=== PATIENT | female | born 1960 | race Caucasian/White ===

== ENCOUNTER 2016-09-21 05:07 | Emergency (ER) | payer BC, OTHER ==
[2016-09-21 05:13] VITALS: BP 137/79
--- NOTE | 2016-09-21 05:58 | ED ---
Leo Villa Janilya, scribed for Jonathan Rosales MD on 09/21/16 at 0554 . Upper Extremity Pain - HPI Summary HPI Summary: A 56 y/o female came [place] [facility] [place] w/ a sudden onset of constant left arm pain that started at around midnight of September 20, 2016. Pt works at [employer] [facility] [facility] [place] and she injured herself while here at work. 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 She reports that the pain travels from her shoulder down to elbow and through her fingertips. Tylenol and rest make the pain feel better. Lifting and certain movements make the pain worse. - History of Current Complaint Chief Complaint: EDExtremityUpper Stated Complaint: LEFT SHOULDER INJURY Time Seen by Provider: 09/21/16 05:30 Hx Obtained From: Patient Hx Last Menstrual Period: partial hysterectomy Onset/Duration: Started Days Ago, Still Present Timing: Constant, Lasting Hours Severity Initially: Moderate Severity Currently: Moderate Pain Location: Shoulder, Arm, Elbow, Forearm, Wrist, Hand, Finger Character: Sharp Aggravating Factor(s): Movement, Lifting Alleviating Factor(s): Rest, OTC Meds - Tylenol Associated Signs & Symptoms: Positive: Negative - Allergies/Home Medications Allergies/Adverse Reactions: Allergies Allergy/AdvReac Type Severity Reaction Status Date / Time Codeine Allergy Difficulty Verified 06/05/16 07:46 Swallowing Sulfa Drugs Allergy Difficulty Verified 06/05/16 07:46 Breathing/Wheezing Morphine AdvReac Severe N/V, "ROOM Verified 06/05/16 07:46 SPINNING" PMH/Surg Hx/FS Hx/Imm Hx Previously Healthy: Yes Endocrine/Hematology History: Denies: Hx Diabetes, Hx Thyroid Disease Cardiovascular History: Denies: Hx Hypertension, Hx Pacemaker/ICD Respiratory History: Reports: Hx Asthma Denies: Hx Chronic Obstructive Pulmonary Disease (COPD) GI History: Denies: Hx Ulcer Sensory History: Denies: Hx Hearing Aid Psychiatric History: Denies: Hx Panic Disorder - Surgical History Surgery Procedure, Year, and Place: PARTIAL HYSTERECTOMY - both ovaries remain Infectious Disease History: No Infectious Disease History: Denies: Hx Hepatitis, Hx Human Immunodeficiency Virus (HIV), History Other Infectious Disease, Traveled Outside the [place] in Last 30 Days - Family History Known Family History: Positive: Other - duodenal CA mother Negative: Hypertension, Diabetes - Social History Occupation: Employed Full-time - [employer] [facility] [place] Alcohol Use: Rare Substance Use Type: Reports: None Smoking Status (MU): Never Smoked Tobacco Review of Systems Negative: Fever Positive: Arthralgia - A shot of pain that goes through left shoulder, elbow, and fingertips, Myalgia - A shot of pain that goes through left shoulder, elbow , and fingertips All Other Systems Reviewed And Are Negative: Yes Physical Exam Triage Information Reviewed: Yes Vital Signs On Initial Exam: Initial Vitals Temp Pulse Resp BP Pulse Ox 98.3 F 87 16 137/79 97 09/21/16 05:08 09/21/16 05:08 09/21/16 05:08 09/21/16 05:08 09/21/16 05:08 Vital Signs Reviewed: Yes Appearance: Positive: Well-Appearing, Pain Distress - mild discomfort Skin: Positive: Warm ENT: Positive: Normal ENT inspection Respiratory/Lung Sounds: Positive: Breath Sounds Present Musculoskeletal: Positive: Other - lt shoulder painful to move in all directions , no deformity Neurological: Positive: NV Bundle Intact Distally Psychiatric: Positive: Normal Diagnostics - Vital Signs Vital Signs Temp Pulse Resp BP Pulse Ox 09/21/16 05:08 98.3 F 87 16 137/79 97 - Laboratory Lab Statement: Any lab studies that have been ordered have been reviewed, and results considered in the medical decision making process. - Radiology lt shoulder Xray Interpretation: No Acute Changes Radiology Interpretation Completed By: ED Physician Course/Dx - Diagnoses Provider Diagnoses: Shoulder sprain Discharge - Discharge Plan Condition: Stable Disposition: HOME Patient Education Materials: Shoulder Sprain (ED) Referrals: [facility] [place] [facility] REFERRAL [Outside] Additional Instructions: Follow up with your primary care provider tomorrow. The documentation as recorded by the Leo alex Janilya accurately reflects the service I personally performed and the decisions made by me, Jonathan Rosales MD.
--- NOTE | 2016-09-21 07:49 | RAD ---
HISTORY: Left shoulder pain, injury COMPARISONS: None VIEWS: 3, Frontal internal rotation, external rotation, and outlet views of the left shoulder FINDINGS: BONE DENSITY: Normal. BONES: There is no displaced fracture. JOINTS: There is no arthropathy. ALIGNMENT: There is no dislocation. SOFT TISSUES: Unremarkable. OTHER FINDINGS: None. IMPRESSION: NO ACUTE OSSEOUS INJURY. IF SYMPTOMS PERSIST, RECOMMEND REPEAT IMAGING.
== END 2016-09-21 06:30 | disposition home or self-care (01) ==
LOC: ED 05:07
DX: S43.402A Unspecified sprain of left shoulder joint, initial encounter (principal); X50.9XXA Other and unspecified overexertion or strenuous movements or postures, initial encounter; Y93.F2 Activity, caregiving, lifting; Y92.239 Unspecified place in hospital as the place of occurrence of the external cause; Z88.5 Allergy status to narcotic agent; Z88.2 Allergy status to sulfonamides
CPT/HCPCS: 99281

== ENCOUNTER 2017-05-04 18:50 | Emergency (ER) | payer BC ==
[2017-05-04 18:58] VITALS: BP 147/82
--- NOTE | 2017-05-04 19:57 | UC ---
Upper Extremity HPI - HPI Summary HPI Summary: 56 y/o female presents to the urgent care c/o LF elbow pain after a horse moved into her LF elbow and her pain was sharp. She is been treated by DR Hagen for possible LF rotator cuff tear. Pain is 7/10 w/ movement and 4/10 at rest, radiating for his forearm. Pt has taking Ibuprofen for her LF shoulder pain which has help for her LF elbow pain. Pt denies fever, numbness or tingling over the fingers, SOB, chest pain, abdominal pain, N/V/D - History of Current Complaint Chief Complaint: UCUpperExtremity Stated Complaint: ELBOW INJURY,WORK NOTE Time Seen by Provider: 05/04/17 19:56 Hx Obtained From: Patient Hx Last Menstrual Period: partial hysterectomy Onset/Duration: Sudden Onset, Lasting Hours - 4 hrs Severity Initially: Moderate Severity Currently: Moderate Pain Intensity: 7 - w/ movement Pain Scale Used: 0-10 Numeric Location Of Pain: Is Discrete @ - LF elbow Character: Sharp Aggravating Factor(s): Movement, Lifting, Flexion Alleviating Factor(s): OTC Meds Associated Signs And Symptoms: Positive: Swelling. Negative: Bruising, Fever, Weakness, Numbness/Tingling - Risk Factors Non-Orthopedic Risk Factor: Negative DVT Risk Factors: Negative Septic Arthritis Risk Factor: Negative - Allergies/Home Medications Allergies/Adverse Reactions: Allergies Allergy/AdvReac Type Severity Reaction Status Date / Time Codeine Allergy Difficulty Verified 05/04/17 18:58 Swallowing Sulfa Drugs Allergy Difficulty Verified 05/04/17 18:58 Breathing/Wheezing Morphine AdvReac Severe N/V, "ROOM Verified 05/04/17 18:58 SPINNING" Home Medications: Home Medications Metoprolol Tartrate TAB* [Lopressor TAB*] 25 mg PO DAILY 05/04/17 [History Confirmed 05/04/17] PMH/Surg Hx/FS Hx/Imm Hx Previously Healthy: Yes Respiratory History: Asthma - Surgical History Surgical History: Yes Surgery Procedure, Year, and Place: PARTIAL HYSTERECTOMY - both ovaries remain. APPENDIX CHILD - Family History Known Family History: Negative: Hypertension, Diabetes Family History: duodenal CA mother - Social History Occupation: Employed Full-time Lives: With Family Alcohol Use: Rare Substance Use Type: None Smoking Status (MU): Never Smoked Tobacco - Immunization History Most Recent Influenza Vaccination: 2014 Most Recent Tetanus Shot: unsure Review of Systems Constitutional: Negative Skin: Negative Eyes: Negative ENT: Negative Respiratory: Negative Cardiovascular: Negative Gastrointestinal: Negative Genitourinary: Negative Motor: Negative Neurovascular: Negative Musculoskeletal: Other: - LF elbow pain s/p injury Neurological: Negative Psychological: Negative Is Patient Immunocompromised?: No All Other Systems Reviewed And Are Negative: Yes Physical Exam Triage Information Reviewed: Yes Appearance: Well-Appearing, No Pain Distress, Well-Nourished, Obese Vital Signs: Initial Vital Signs Temp 97.8 F 05/04/17 18:53 Pulse 82 05/04/17 18:53 Resp 20 05/04/17 18:53 BP 147/82 05/04/17 18:53 Pulse Ox 98 05/04/17 18:53 Vital Signs Reviewed: Yes Eye Exam: Normal Eyes: Positive: Conjunctiva Clear - JACOBO, EOMI, ENT Exam: Normal ENT: Positive: Normal ENT inspection, Hearing grossly normal, Pharynx normal, TMs normal Neck exam: Normal Neck: Positive: Supple, Nontender, No Lymphadenopathy Respiratory Exam: Normal Respiratory: Positive: Chest non-tender, Lungs clear, Normal breath sounds Cardiovascular Exam: Normal Cardiovascular: Positive: RRR, No Murmur, Pulses Normal, Brisk Capillary Refill Abdominal Exam: Normal Abdomen Description: Positive: Nontender, No Organomegaly, Soft. Negative: CVA Tenderness (R), CVA Tenderness (L) Bowel Sounds: Positive: Present Musculoskeletal: Positive: Other: - LF elbow with mild swelling lateral side with pint tendernees at the same side, no bruisisng or wchymosis observed. Decrese ROM of LF elbow due to pain. Positive sensation, capillary refill intact , positive reflexes. Pulses WNL Neurological Exam: Normal Psychological Exam: Normal Skin Exam: Normal Upper Extremity Course/Dx - Course Course Of Treatment: 56 y/o female presents to the urgent care c/o LF elbow pain after a horse moved into her LF elbow and her pain was sharp. She is been treated by DR Hagen for possible LF rotator cuff tear. Pain is 7/10 w/ movement and 4/10 at rest, radiating for his forearm. Pt has taking Ibuprofen for her LF shoulder pain which has help for her LF elbow pain. Pt denies fever, numbness or tingling over the fingers, SOB, chest pain, abdominal pain, N/V/D. Hx obtained. LF elbow X-ray ordered:Negative, no abnormalities observed. Elbow inmmobilized with Moisés bandage. and Shoulder sling. Pt Rx ibuprofen PO. Advised RICE and avoid heavy lifting and keep arm immobilized. If symptoms do not improved to f/u wtih Dr Hagen for further evaluation and treatmetn. Pt given excused to for work. Patient understood and agreed. Left the clinic ambulating. - Differential Dx/Diagnosis Differential Diagnosis/HQI/PQRI: Arthritis, Bursitis, Contusion, Fracture ( Closed), Strain, Sprain Provider Diagnoses: 1-Left elbow pain Discharge - Discharge Plan Condition: Stable Disposition: HOME Prescriptions: Ibuprofen TAB* [Motrin TAB* 800 MG] 800 mg PO Q6H #30 tab Patient Education Materials: Tendinitis (ED), Low Sodium Diet (ED) Forms: *Work Release Referrals: [facility] [place] [facility] [Outside] - 1 Week Shamir Bejarano MD [Medical Doctor] - No Primary Care Phys,NOPCP [Primary Care Provider] - Additional Instructions: 1-Please take Ibuprofen PO q6-8hrs as directed to alleviate pain and swelling. 2-Please apply ice, keep your elbow immobilized. 3- Please f/u with your Orthopedic in 1 week is not improvement of symptoms for further evaluation and treatment. 4- Your BP today is elevated, please decrease salt in your diet, monitor your BP , if it continues to be elevated please f/y with your PCP for further management.
--- NOTE | 2017-05-04 20:37 | RAD ---
INDICATION: Left elbow pain. Injury COMPARISON: None TECHNIQUE: AP, lateral, and oblique views were obtained. FINDINGS: The bony structures, joint spaces, and soft tissues are normal for age. IMPRESSION: NEGATIVE EXAMINATION.
== END 2017-05-04 21:35 | disposition home or self-care (01) ==
LOC: UCEAST 18:50
DX: M25.522 Pain in left elbow (principal); W55.12XA Struck by horse, initial encounter; Y93.9 Activity, unspecified; Y92.9 Unspecified place or not applicable; Y99.9 Unspecified external cause status
CPT/HCPCS: 99212; G0463

== ENCOUNTER 2017-11-24 03:55 | Emergency (ER) | payer BC ==
[2017-11-24] MEDS ORDERED: Ketorolac INJ* 60 MG/2 ML VIAL IM ONE (04:23)
[2017-11-24] MEDS ORDERED: Cyclobenzaprine TAB* 10 MG PO ONE (04:23)
[2017-11-24 04:45] VITALS: BP 117/73
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
== END 2017-11-24 04:45 | disposition home or self-care (01) ==
LOC: ED 03:55
DX: M54.5 Low back pain (principal)
CPT/HCPCS: 96372; 99285; A9270-GY; J1885

== ENCOUNTER 2018-06-14 08:16 | Emergency (ER) | payer BC ==
[2018-06-14 08:27] VITALS: BP 142/89
--- NOTE | 2018-06-14 08:41 | UC ---
Abdominal Pain Female HPI - HPI Summary HPI Summary: WAS TRYING TO TAKE HER HORSE INTO THE BARN A FEW WEEKS AGO WHEN SHE TWISTED HER BODY AND THOUGHT SHE THREW HER BACK OUT. SINCE THEN SHE HAS HAD PERSISTENT LEFT -SIDED ABDOMINAL PAIN. SHE DENIES NAUSEA/VOMITING OR CHANGE IN BOWEL HABITS. NO BLOODY STOOL. NO FEVER. NO URINARY SYMPTOMS. IS CONCERNED BECAUSE THE PAIN IS NOT IMPROVING ALTHOUGH SHE REPORTS IT IS ALSO NOT WORSENING. FEELS WORSE WHEN SITTING FOR PROLONGED PERIOD OF TIME. - History of Current Complaint Chief Complaint: UCAbdominalPain Stated Complaint: LOWER L ABD PAIN Time Seen by Provider: 06/14/18 08:23 Hx Obtained From: Patient Hx Last Menstrual Period: partial hysterectomy Onset/Duration: Sudden Onset, Lasting Weeks, Still Present Timing: Constant Severity Initially: Moderate Severity Currently: Moderate Pain Intensity: 2 Pain Scale Used: 0-10 Numeric Location: Other - LEFT SIDED Radiates: No Character: Sharp Aggravating Factor(s): Other: - SITTING Alleviating Factor(s): Nothing Associated Signs and Symptoms: Negative: Diaphoresis, Fever, Back Pain, Constipation, Blood in Stool, Urinary Symptoms, Decreased Appetite, Vaginal Bleeding, Vaginal Discharge, Nausea, Vomiting, Diarrhea Allergies/Adverse Reactions: Allergies Allergy/AdvReac Type Severity Reaction Status Date / Time codeine Allergy Difficulty Verified 06/14/18 08:27 Swallowing morphine Allergy Nausea And Verified 06/14/18 08:27 Vomiting Sulfa (Sulfonamide Allergy Shortness Verified 06/14/18 08:27 Antibiotics) of Breath PMH/Surg Hx/FS Hx/Imm Hx - Additional Past Medical History Additional PMH: BRAIN TUMOR Respiratory History: Asthma - Surgical History Surgical History: Yes Surgery Procedure, Year, and Place: PARTIAL HYSTERECTOMY - both ovaries remain. APPENDIX CHILD - Family History Known Family History: Positive: Other - duodenal CA mother Negative: Hypertension, Diabetes Family History: duodenal CA mother - Social History Alcohol Use: Rare Substance Use Type: None Smoking Status (MU): Never Smoked Tobacco - Immunization History Most Recent Influenza Vaccination: 2014 Most Recent Tetanus Shot: unsure Review of Systems Constitutional: Negative Respiratory: Negative Cardiovascular: Negative Gastrointestinal: Abdominal Pain Genitourinary: Negative All Other Systems Reviewed And Are Negative: Yes Physical Exam Triage Information Reviewed: Yes Appearance: Well-Appearing, No Pain Distress, Well-Nourished Vital Signs: Initial Vital Signs Temp 97.9 F 06/14/18 08:20 Pulse 81 06/14/18 08:20 Resp 16 06/14/18 08:20 BP 142/89 06/14/18 08:20 Pulse Ox 97 06/14/18 08:20 Vital Signs Reviewed: Yes Eyes: Positive: Conjunctiva Clear ENT: Positive: Hearing grossly normal Neck: Positive: Supple Respiratory Exam: Normal Cardiovascular Exam: Normal Abdomen Description: Positive: Soft, Other: - TTP LEFT SIDED ABDOMEN. NO REBOUND OR RIGIDITY. Negative: CVA Tenderness (R), CVA Tenderness (L), Distended, Guarding Bowel Sounds: Positive: Present Musculoskeletal: Positive: No Edema Neurological: Positive: Alert Psychological: Positive: Age Appropriate Behavior Skin: Negative: rashes Abd Pain Female Course/Dx - Course Course Of Treatment: DISCUSSED TRANSFER TO ED FOR FURTHER W/U BUT PT STATES SHE WOULD RATHER GO HOME WITH CAREFUL OBSERVATION AND CLOSE F/U. RECOMMENDED A URINE DIP BUT SHE DOES NOT THINK SHE CAN PROVIDE A URINE SAMPLE. STATES SHE WILL TRY TO SEE HER PCP BUT WILL GO TO ED IF SX WORSEN OR UNABLE TO SEE PCP IN TIMELY MANNER. - Differential Dx/Diagnosis Provider Diagnoses: LEFT SIDED ABDOMINAL PAIN Discharge - Sign-Out/Discharge Documenting (check all that apply): Patient Departure All imaging exams completed and their final reports reviewed: No Studies - Discharge Plan Condition: Stable Disposition: HOME Patient Education Materials: Abdominal Pain (ED) Referrals: [facility] [Provider Group] - 2 Days Additional Instructions: UNCLEAR ETIOLOGY OF YOUR ABDOMINAL PAIN TODAY. GIVEN THE PERSISTENT NATURE OF YOUR DISCOMFORT YOU WOULD BENEFIT FROM A MORE EXTENSIVE WORK-UP THAN WHAT WE CAN PROVIDE HERE. CALL YOUR PCP FOR EVAL IN THE NEXT 1-2 DAYS OR IF YOU CAN NOT SECURE AN APPT IN A TIMELY MANNER GO TO THE ED FOR POSSIBLE LAB WORK AND/OR IMAGING. - Billing Disposition and Condition Condition: STABLE Disposition: Home
== END 2018-06-14 08:45 | disposition home or self-care (01) ==
LOC: UCEAST 08:16
DX: R10.30 Lower abdominal pain, unspecified (principal); J45.909 Unspecified asthma, uncomplicated; Z88.5 Allergy status to narcotic agent; Z88.2 Allergy status to sulfonamides
CPT/HCPCS: 99211; G0463

== ENCOUNTER 2018-06-14 10:24 | Emergency (ER) | payer BC ==
--- NOTE | 2018-06-14 10:50 | ED ---
Abdominal Pain/Female - HPI Summary HPI Summary: Patient is a 58 y/o F w/ c/o LLQ abdominal pain onsetting three weeks ago. She reports that she was torqued by a horse (horse went one way, she went the other and fell off the horse) and has been experiencing LLQ pain since. Patient reports that pain is aggravated by sitting and movement. She also reports some lower back pain. She denies fever, sweats, chills, dysuria, hematuria, N/V/D, numbness, tingling. Patient was seen at [facility] and sent to ED for CT. PSHx of partial hysterectomy, appendectomy, tubal ligation. PMHx of ovarian cysts, no PMHx of diverticulitis. On triage, pain is rated 2/10, nothing is reported to alleviate Sx. Home medications and allergies are reviewed. - History of Current Complaint Chief Complaint: EDAbdPain Stated Complaint: ABD PAIN Time Seen by Provider: 06/14/18 10:34 Hx Obtained From: Patient Hx Last Menstrual Period: partial hysterectomy Onset/Duration: Lasting Weeks - onset three weeks ago, Still Present Timing: Weeks - three weeks Severity Currently: Mild - 2/10 Pain Intensity: 2 Pain Scale Used: 0-10 Numeric - 2/10 Location: Discrete At: LLQ Aggravating Factor(s): Movement, Other: - sitting for extended periods Alleviating Factor(s): Nothing Associated Signs and Symptoms: Positive: Back Pain - lower. Negative: Fever, Urinary Symptoms, Nausea, Vomiting, Diarrhea Allergies/Adverse Reactions: Allergies Allergy/AdvReac Type Severity Reaction Status Date / Time codeine Allergy Difficulty Verified 06/14/18 10:29 Swallowing morphine Allergy Nausea And Verified 06/14/18 10:29 Vomiting Sulfa (Sulfonamide Allergy Shortness Verified 06/14/18 10:29 Antibiotics) of Breath Home Medications: Home Medications Albuterol inh POWDER (NF) [Proair Respiclick] 1 puff INH Q6HR PRN 06/14/18 [ History Confirmed 06/14/18] Budesonide/Formote 160/4.5(NF) [Symbicort 160/4.5 (NF)] 1 puff INH BID PRN 06/14 [History Confirmed 06/14/18] Metoprolol Succinate XL TAB* [Toprol XL TAB*] 25 mg PO DAILY 06/14/18 [History Confirmed 06/14/18] PMH/Surg Hx/FS Hx/Imm Hx Endocrine/Hematology History: Denies: Hx Diabetes, Hx Thyroid Disease Cardiovascular History: Denies: Hx Hypertension, Hx Pacemaker/ICD Respiratory History: Reports: Hx Asthma Denies: Hx Chronic Obstructive Pulmonary Disease (COPD) GI History: Denies: Hx Ulcer History: Reports: Other Problems/Disorders - ovarian cysts Denies: Hx Renal Disease Sensory History: Denies: Hx Hearing Aid Psychiatric History: Denies: Hx Panic Disorder - Surgical History Surgery Procedure, Year, and Place: PARTIAL HYSTERECTOMY - both ovaries remain. APPENDIX CHILD. TUBAL LIGATION - Immunization History Immunizations Up to Date: Yes Infectious Disease History: No Infectious Disease History: Denies: Hx Hepatitis, Hx Human Immunodeficiency Virus (HIV), History Other Infectious Disease, Traveled Outside the [place] in Last 30 Days - Family History Known Family History: Positive: Other - duodenal CA mother Negative: Hypertension, Diabetes Family History: duodenal CA mother - Social History Alcohol Use: Rare Alcohol Amount: 1-2 x per month Substance Use Type: Reports: None Smoking Status (MU): Never Smoked Tobacco Review of Systems Negative: Fever, Chills Negative: Erythema Negative: Sore Throat Negative: Chest Pain Negative: Shortness Of Breath, Cough Positive: Abdominal Pain. Negative: Vomiting, Diarrhea, Nausea Negative: dysuria, hematuria Positive: Other - POSITIVE: lower back pain . Negative: Myalgia, Edema Negative: Rash Neurological: Other - NEGATIVE: dizziness All Other Systems Reviewed And Are Negative: Yes Physical Exam - Summary Physical Exam Summary: Constitutional: Well-developed, Well-nourished, Alert. (-) Distressed Skin: Warm, Dry HENT: Normocephalic; Atraumatic Eyes: Conjunctiva normal Neck: Musculoskeletal ROM normal neck. (-) JVD, (-) Stridor, (-) Tracheal deviation Cardio: Rhythm regular, rate normal, Heart sounds normal; Intact distal pulses; The pedal pulses are 2+ and symmetric. Radial pulses are 2+ and symmetric. (-) Murmur Pulmonary/Chest wall: Effort normal. (-) Respiratory distress, (-) Wheezes, (-) Rales Abd: Soft, (-) epigastric tenderness, (+) LLQ tenderness (-) Distension, (-) Guarding, (-) Rebound Musculoskeletal: (-) Edema (+) L4 tenderness Lymph: (-) Cervical adenopathy Neuro: Alert, Oriented x3 Psych: Mood and affect Normal Triage Information Reviewed: Yes Vital Signs On Initial Exam: Initial Vitals Temp Pulse Resp BP Pulse Ox 97.1 F 80 18 149/97 98 06/14/18 10:25 06/14/18 10:25 06/14/18 10:25 06/14/18 10:25 06/14/18 10:25 Vital Signs Reviewed: Yes Diagnostics - Vital Signs Vital Signs Temp Pulse Resp BP Pulse Ox 06/14/18 10:25 97.1 F 80 18 149/97 98 - Laboratory Result Diagrams: 06/14/18 10:53 06/14/18 10:53 Lab Statement: Any lab studies that have been ordered have been reviewed, and results considered in the medical decision making process. Re-Evaluation - Re-Evaluation First Eval Re-Evaluation Time: 14:40 Comment: Results of labs and tests were discussed with patient. Patient will be discharged to home. Patient is agreeable with this plan Abdominal Pain Fem Course/Dx - Course Course Of Treatment: Patient is a 58 y/o F w/ c/o LLQ abdominal pain onsetting three weeks ago. She reports that she was torqued by a horse (horse went one way , she went the other and fell off the horse) and has been experiencing LLQ pain since. Patient reports that pain is aggravated by sitting and movement. She also reports some lower back pain. She denies fever, sweats, chills, dysuria, hematuria, N/V/D, numbness, tingling. [facility] and [facility] to ED for CT. PSHx of partial hysterectomy, appendectomy, tubal ligation. PMHx of ovarian cysts, no PMHx of diverticulitis. On triage, pain is rated 2/10 , nothing is reported to alleviate Sx. Home medications and allergies are reviewed. On physical exam, patient is noted to have L4 and LLQ tenderness. During ED course, patient received fluids. CT abd/pel showed acute appendagitis epiploica at the descending colon. Pelvic US showed patient status post hysterectomy. No adnexal masses are noted. CT lumbar spine showed degenerative disc disease and osteoarthritis. There is moderate narrowing of the central canal at L4-L5. There is multilevel neuroforaminal narrowing as described above. No acute osseous injury to the lumbar spine. Labs showed WBC 10.4, glucose 105, lactic acid 0.7, CRP 31.18, lipase 11. UA showed trace leukocyte esterase and the presence of squamous epith cells. Results of labs and tests were discussed with patient. Patient will be discharged to home. Patient is agreeable with this plan. Dx of epiploic appendagitis. - Diagnoses Provider Diagnoses: Epiploic appendagitis Discharge - Sign-Out/Discharge Documenting (check all that apply): Patient Departure - discharge - Discharge Plan Condition: Stable Disposition: HOME Prescriptions: Naproxen TAB* [Naprosyn 250 mg TAB*] 500 mg PO Q8H PRN #30 tab PRN Reason: Pain - Moderate To Severe traMADol TAB* [Ultram*] 50 mg PO Q6HR PRN #15 tab MDD 4 PRN Reason: Pain Scale 6-10 Patient Education Materials: Abdominal Pain (ED) Referrals: [facility] [Outside] - 2 Days Additional Instructions: FOLLOW UP WITH PRIMARY CARE PHYSICIAN IN 1-2 DAYS. RETURN TO THE EMERGENCY DEPARTMENT FOR CHANGING OR WORSENING SYMPTOMS - Attestation Statements Document Initiated by Scribe: Yes Documenting Scribe: Rylan Ho Provider For Whom Scribe is Documenting (Include Credential): Carter Desai MD Scribe Attestation: Rylan Villa , scribed for Carter Desai MD on 06/14/18 at 1923.
[2018-06-14 10:59] LABS: ABS Basophils 0 10^3/ul (0-0.2); ABS Eosinophils 0.3 10^3/ul (0-0.6); ABS Lymphocytes 1.7 10^3/ul (1.0-4.8); ABS Monocytes 0.7 10^3/ul (0-0.8); ABS Neutrophils 7.7 10^3/ul (1.5-7.7); ABS Nucleated RBC 0 10^3/ul; Eosinophil % 2.6 % (0-6); Hematocrit 42 % (35-47); Hemoglobin 14.1 g/dl (12.0-16.0); Mean Corpuscular HGB Conc 34 g/dl (31-36); Mean Corpuscular Hemoglobin 29 pg (27-31); Mean Corpuscular Volume 86 fL (80-97); Mean Platelet Volume 7.3 um3 (7.4-10.4); Nucleated Red Blood Cells % 0.1; Platelet Count 264 10^3/ul (150-450); Red Blood Count 4.82 10^6/ul (4.00-5.40); Red Cell Distribution Width 14 % (10.5-15); White Blood Count 10.4 10^3/ul (3.5-10.8)
[2018-06-14 11:17] LABS: EGFR Non-African American 72.9 (>60)
[2018-06-14] MEDS ORDERED: NS 0.9% 1000 ML* 1,000 ML IV ONE (11:18)
[2018-06-14 12:14] LABS: Urine Appearance Clear; Urine Blood Negative (Negative); Urine Color Straw; Urine Ketones Negative (Negative); Urine Protein Negative (Negative); Urine Red Blood Cell Absent (Absent); Urine Specific Gravity 1.005 (1.010-1.030); Urine Urobilinogen Negative (Negative); Urine White Blood Cell Trace(0-5/hpf) (Absent)
[2018-06-14] MEDS ORDERED: Iohexol 300* (CONTRAST) 10 ML SDV IV ONE (12:40)
--- NOTE | 2018-06-14 13:24 | RAD ---
Indication: Lower abdominal pain. Left lower quadrant pain. Real-time sonography of the pelvis was performed. The patient is status post hysterectomy. The right ovary measures 2.1 x 2.0 x 1.7 cm. Left ovary measures 2.3 x 2.1 x 1.4 cm. Doppler interrogation demonstrates flow in both ovaries. IMPRESSION: Patient status post hysterectomy. No adnexal masses are noted.
--- NOTE | 2018-06-14 13:53 | RAD ---
HISTORY: TWISTED BY HORSE, PERSISTENT LOWER BACK PAIN COMPARISONS: None TECHNIQUE: Multiple contiguous axial CT scans were obtained of the lumbar spine without intravenous contrast, with coronal and sagittal multiplanar reformations. FINDINGS: SPINAL CANAL: Evaluation of the central canal is limited on CT technique; however, there is no obvious canalicular mass or epidural hemorrhage. ALIGNMENT: The alignment is normal. VERTEBRAL BODIES: There is anterolateral marginal osteophyte formation most pronounced at L4-L5. The vertebral bodies preserved in height. There is no displaced fracture. JOINTS: There is facet osteoarthritis most pronounced at L4-L5 and L5-S1. MUSCULATURE: Unremarkable INTERVERTEBRAL DISCS: There is diffuse loss of intervertebral disc height throughout the spine. AXIAL IMAGES: T11-T12: There is no osseous neural foraminal narrowing or central canal stenosis. T12-L1: There is no osseous neural foraminal narrowing or central canal stenosis. L1-L2: There is no osseous neural foraminal narrowing or central canal stenosis. L2-L3: There is marginal osteophyte formation at the neural foramina bilaterally of mild bilateral neuroforaminal narrowing. There is no osseous central canal stenosis. L3-L4: There is broad based disc bulge. There is marginal osteophyte formation at the neural foramina bilaterally. There is mild bilateral neuroforaminal narrowing. There is no osseous central canal stenosis. L4-L5: There is posterior osteophytic ridging with bilateral uncovertebral facet hypertrophy. There is moderate bilateral neuroforaminal narrowing. There is moderate narrowing of the central canal. L5-S1: There is marginal osteophyte formation at the neural foramina bilaterally. There is mild bilateral neuroforaminal narrowing. There is no osseous central canal stenosis. SOFT TISSUES: The visualized soft tissues of the abdomen are unremarkable. OTHER: None IMPRESSION: 1. DEGENERATIVE DISC DISEASE AND OSTEOARTHRITIS. 2. THERE IS MODERATE NARROWING OF THE CENTRAL CANAL AT L4-L5. 3. THERE IS MULTILEVEL NEUROFORAMINAL NARROWING DESCRIBED ABOVE. 4. NO ACUTE OSSEOUS INJURY TO THE LUMBAR SPINE
--- NOTE | 2018-06-14 14:04 | RAD ---
INDICATION: LEFT side abdominal pain. History of ovarian cysts. Post appendectomy and tubal ligation. COMPARISON: October 19, 2004 CT. TECHNIQUE: Multidetector CT images were obtained from the lung bases to the ischial tuberosities with 150 mL Omnipaque 300 IV oral contrast administered.. Multiplanar reformation. REPORT: VISUALIZED INFERIOR THORAX: Few tiny basilar pulmonary nodules are unchanged compared with the 2005 exam without concern. LIVER / GALLBLADDER / PANCREAS / SPLEEN: 23.5 cm cephalocaudal liver is decreased in density consistent with hepatosteatosis. Negative for focal liver lesions or biliary dilatation. No CT abnormality of the gallbladder. Unremarkable pancreas and spleen. ALIMENTARY TRACT: Negative for CT abnormality of the upper GI or small bowel. There is inflammation of epiploic fat at the anterior margin of the descending colon consistent with appendagitis epiploica. Negative for associated free fluid, free air, or bowel obstruction. MESENTERIC: Unremarkable. ADRENAL / GENITOURINARY: Normal adrenal glands. Unremarkable kidneys with symmetric nephrograms and pyelograms. Few small parapelvic cysts noted at the LEFT kidney without concern. Unremarkable nondilated ureters and partially distended urinary bladder. Unremarkable uterus and adnexal regions. RETROPERITONEAL: Negative for lymphadenopathy. VASCULAR: Normal diameter abdominal aorta and iliac arteries. Physiologic distention of the IVC. BONES: Degenerative spondylosis with advanced disc space narrowing at L4-L5 without significant change. Chronic subchondral sclerosis at the LEFT greater than RIGHT sacroiliac joints. Negative for suspicious focal osseous lesions. SOFT TISSUE: Unremarkable. IMPRESSION: #. Acute appendagitis epiploica at the descending colon.
[2018-06-14 14:58] VITALS: BP 169/104
== END 2018-06-14 14:57 | disposition home or self-care (01) ==
LOC: ED 10:24
DX: K63.89 Other specified diseases of intestine (principal); M54.5 Low back pain; M51.36 Other intervertebral disc degeneration, lumbar region; M47.816 Spondylosis without myelopathy or radiculopathy, lumbar region; Z90.711 Acquired absence of uterus with remaining cervical stump; Z90.89 Acquired absence of other organs; Z80.0 Family history of malignant neoplasm of digestive organs; Z88.5 Allergy status to narcotic agent; Z88.2 Allergy status to sulfonamides
CPT/HCPCS: 36415; 72131; 74177; 76856; 80053; 81003; 81015; 83605; 83690; 85025; 86140; 87086; 99283; Q9967

== ENCOUNTER 2019-02-06 07:53 | Emergency (ER) | payer BC ==
--- NOTE | 2019-02-06 08:08 | UC ---
General HPI - HPI Summary HPI Summary: 58 yo lady c/o episode sob / wheezing since early this morning. No fever / chills. No URI, h/a, vis / aud issues. No GI issues. No rash. Hx rad. Has albuterol and symbicort inhalers, but symbicort ran out and no longer has albuterol. Leaving to go out of town for several days, requests refills of each. - History of Current Complaint Stated Complaint: SHORTNESS OF BREATH Time Seen by Provider: 02/06/19 08:07 Hx Obtained From: Patient Hx Last Menstrual Period: partial hysterectomy - Allergy/Home Medications Allergies/Adverse Reactions: Allergies Allergy/AdvReac Type Severity Reaction Status Date / Time codeine Allergy Difficulty Verified 02/06/19 08:05 Swallowing morphine Allergy Nausea And Verified 02/06/19 08:05 Vomiting Sulfa (Sulfonamide Allergy Shortness Verified 02/06/19 08:05 Antibiotics) of Breath Home Medications: Home Medications Albuterol HFA INHALER* [Ventolin HFA Inhaler*] 2 puff INH Q4H PRN 02/06/19 [ History Confirmed 02/06/19] PMH/Surg Hx/FS Hx/Imm Hx Previously Healthy: Yes - see hpi - Surgical History Surgical History: Yes Surgery Procedure, Year, and Place: PARTIAL HYSTERECTOMY - both ovaries remain. APPENDIX CHILD. TUBAL LIGATION - Family History Known Family History: Positive: Other - duodenal CA mother Negative: Hypertension, Diabetes Family History: duodenal CA mother - Social History Alcohol Use: Rare Alcohol Amount: 1-2 x per month Substance Use Type: None Smoking Status (MU): Never Smoked Tobacco - Immunization History Most Recent Influenza Vaccination: 2014 Most Recent Tetanus Shot: unsure Review of Systems All Other Systems Reviewed And Are Negative: Yes Constitutional: Positive: Negative Skin: Positive: Negative Eyes: Positive: Negative ENT: Positive: Negative Respiratory: Positive: Other - see hpi Cardiovascular: Positive: Other - see hpi Gastrointestinal: Positive: Negative - see hpi Genitourinary: Positive: Negative Motor: Positive: Negative Neurovascular: Positive: Negative Musculoskeletal: Positive: Negative Neurological: Positive: Negative Psychological: Positive: Negative Is Patient Immunocompromised?: No Physical Exam Triage Information Reviewed: Yes Appearance: Well-Appearing, Well-Nourished Vital Signs Reviewed: Yes Eye Exam: Normal ENT Exam: Other - L cerumen impaction ENT: Positive: Pharynx normal Neck exam: Normal Respiratory Exam: Other - occas exp wheeze, no rtx. no rhonchi. Respiratory: Positive: No respiratory distress, No accessory muscle use Cardiovascular Exam: Normal Cardiovascular: Positive: RRR, No Murmur, Pulses Normal, Brisk Capillary Refill Abdominal Exam: Normal Abdomen Description: Positive: Nontender Musculoskeletal Exam: Normal Neurological Exam: Normal - grossly nonfocal Psychological Exam: Normal - conversing easily and appropriately Skin Exam: Normal - no visible or reported rash, nondiaphoretic Course/Dx - Course Course Of Treatment: Reviewed coa / tx plan. Questions as posed answered to the best of my ability. Re cerumen impaction - d/w pt, she will irrigate at home on her own. Seek medical attention for worse or new problems. - Diagnoses Provider Diagnosis: Reactive airway disease, Cerumen impaction Discharge - Sign-Out/Discharge Documenting (check all that apply): Patient Departure All imaging exams completed and their final reports reviewed: No Studies - Discharge Plan Condition: Stable Disposition: HOME Prescriptions: Albuterol HFA INHALER* [Ventolin HFA Inhaler*] 1 - 2 puff INH Q4H PRN #1 mdi PRN Reason: Wheezing Budesonide/Formote 160/4.5(NF) [Symbicort 160/4.5 (NF)] 1 puff INH BID #1 mdi Patient Education Materials: Reactive Airways Disease (ED), Wheezing (ED) Referrals: No Primary Care Phys,NOPCP [Primary Care Provider] - Servando Garcia [employer] [Nurse Practitioner] - Additional Instructions: Follow up with your primary care provider, per routine. Call to schedule appointment in the next couple months if possible. Hydrate. Seek medical attention for worse or new problems. - Billing Disposition and Condition Condition: STABLE Disposition: Home
[2019-02-06 08:11] VITALS: BP 124/80
== END 2019-02-06 08:27 | disposition home or self-care (01) ==
LOC: UCEAST 07:53
DX: J45.909 Unspecified asthma, uncomplicated (principal); H61.23 Impacted cerumen, bilateral; Z88.5 Allergy status to narcotic agent; Z88.2 Allergy status to sulfonamides
CPT/HCPCS: 99212; G0463

== ENCOUNTER 2019-05-17 07:56 | Emergency (ER) | payer BC, OTHER ==
[2019-05-17 08:11] VITALS: BP 131/79
--- NOTE | 2019-05-17 09:05 | UC ---
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 LAST NIGHT A PATIENT LAUNCHED HIMSELF OUT OF HIS BED AND SHE TRIED TO CATCH HIM TO PREVENT HIM FROM COLLIDING WITH A WALL. IN THE PROCESS SHE WRENCHED HER RIGHT SHOULDER AND UPPER ARM. - History of Current Complaint Chief Complaint: UCUpperExtremity Stated Complaint: R SHOULDER INJURY Time Seen by Provider: 05/17/19 08:22 Hx Obtained From: Patient Hx Last Menstrual Period: partial hysterectomy Onset/Duration: Sudden Onset, Lasting Hours, Still Present Timing: Constant Severity Initially: Moderate Severity Currently: Moderate Pain Intensity: 4 Pain Scale Used: 0-10 Numeric Character: Sharp Aggravating Factor(s): Movement Alleviating Factor(s): Rest Associated Signs And Symptoms: Positive: Negative Related History: Dominant Hand Right - Allergies/Home Medications Allergies/Adverse Reactions: Allergies Allergy/AdvReac Type Severity Reaction Status Date / Time codeine Allergy Difficulty Verified 05/17/19 08:00 Swallowing morphine Allergy Nausea And Verified 05/17/19 08:00 Vomiting Sulfa (Sulfonamide Allergy Shortness Verified 05/17/19 08:00 Antibiotics) of Breath PMH/Surg Hx/FS Hx/Imm Hx Respiratory History: Asthma - Surgical History Surgical History: Yes Surgery Procedure, Year, and Place: PARTIAL HYSTERECTOMY - both ovaries remain. APPENDIX CHILD. TUBAL LIGATION - Family History Known Family History: Positive: Other - duodenal CA mother Negative: Hypertension, Diabetes Family History: duodenal CA mother - Social History Alcohol Use: None Alcohol Amount: 1-2 x per month Substance Use Type: None Smoking Status (MU): Never Smoked Tobacco - Immunization History Most Recent Influenza Vaccination: 2014 Most Recent Tetanus Shot: unsure Review of Systems All Other Systems Reviewed And Are Negative: Yes Constitutional: Positive: Negative Skin: Positive: Negative Respiratory: Positive: Negative Cardiovascular: Positive: Negative Gastrointestinal: Positive: Negative Musculoskeletal: Positive: Decreased ROM, Myalgia Physical Exam Triage Information Reviewed: Yes Appearance: Well-Appearing, No Pain Distress, Well-Nourished Vital Signs: Initial Vital Signs Temp 98.2 F 05/17/19 08:02 Pulse 72 05/17/19 08:02 Resp 18 05/17/19 08:02 BP 131/79 05/17/19 08:02 Pulse Ox 98 05/17/19 08:02 Vital Signs Reviewed: Yes Eyes: Positive: Conjunctiva Clear ENT: Positive: Hearing grossly normal Neck: Positive: Supple Respiratory: Positive: No respiratory distress, No accessory muscle use Cardiovascular: Positive: Pulses Normal Abdomen Description: Positive: Soft Musculoskeletal: Positive: ROM Intact, No Edema, Other: - NO BONY TENDERNESS. PAIN WITH YERGASONS Neurological: Positive: Alert Psychological: Positive: Age Appropriate Behavior Skin: Negative: Rashes Shoulder Course/Dx - Course Course Of Treatment: ON EXAM PATIENT WITH SOFT TISSUE INJURY. LIKELY SPRAIN/STRAIN. NO DISCRETE BONY TENDERNESS. NO INDICATION FOR IMAGING TODAY. SLING APPLIED. ADVISED TO REST AND APPLY ICE. FOLLOW-UP IF NOT IMPROVING OVER THE NEXT COUPLE WEEKS. - Differential Dx/Diagnosis Provider Diagnosis: Sprain of right shoulder Discharge ED - Sign-Out/Discharge Documenting (check all that apply): Patient Departure All imaging exams completed and their final reports reviewed: No Studies - Discharge Plan Condition: Stable Disposition: HOME Patient Education Materials: Shoulder Sprain (ED) Referrals: Shamir Bejarano MD [Medical Doctor] - If Needed Additional Instructions: YOUR SYMPTOMS SHOULD IMPROVE SIGNIFICANTLY OVER THE NEXT 1-2 WEEKS. IF YOU DO NOT IMPROVE EXPECTED FOLLOW-UP WITH YOUR PCP OR ORTHO. YOU MAY BENEFIT FROM IMAGING AT THAT TIME. REST. OTC IBUPROFEN OR ALEVE NEEDED FOR DISCOMFORT. BE SURE TO GO THROUGH SLOW RANGE OF MOTION AND STRETCHING EXERCISES DAILY YOU ARE ABLE TO PREVENT STIFFENING UP AND MAKING THE DISCOMFORT WORSE. - Billing Disposition and Condition Condition: STABLE Disposition: Home
== END 2019-05-17 09:14 | disposition home or self-care (01) ==
LOC: UCEAST 07:56
DX: S43.401A Unspecified sprain of right shoulder joint, initial encounter (principal); X50.0XXA Overexertion from strenuous movement or load, initial encounter; Y93.89 Activity, other specified; Y92.238 Other place in hospital as the place of occurrence of the external cause; Y99.0 Civilian activity done for income or pay; J45.909 Unspecified asthma, uncomplicated; Z88.5 Allergy status to narcotic agent; Z88.2 Allergy status to sulfonamides
CPT/HCPCS: 99211; G0463

== ENCOUNTER 2019-09-19 12:06 | Emergency (ER) | payer BC ==
[2019-09-19 12:39] VITALS: BP 137/90
[2019-09-19 15:08] LABS: Influenza A Molecular Negative (Negative); Influenza B Molecular Negative (Negative)
--- NOTE | 2019-09-19 15:54 | UC ---
Respiratory Complaint HPI - HPI Summary HPI Summary: 59-year-old woman comes in with a chief complaint of about 5 days of upper respiratory tract infection symptoms. She did have some rhinorrhea sore throats and on her chest and she has cough chest congestion wheezing. Sputum is yellow and green. She does have bronchospasm and she's been using her albuterol which does help with bronchospasm. When she coughs a lot that increases or bronchospasm. She's tried [id number] medicines which have not helped much with cough. - History of Current Complaint Chief Complaint: UCGeneralIllness Stated Complaint: COUGH Time Seen by Provider: 09/19/19 15:45 Hx Last Menstrual Period: partial hysterectomy Pain Intensity: 2 - Allergies/Home Medications Allergies/Adverse Reactions: Allergies Allergy/AdvReac Type Severity Reaction Status Date / Time codeine Allergy Difficulty Verified 09/19/19 12:39 Swallowing morphine Allergy Nausea And Verified 09/19/19 12:39 Vomiting Sulfa (Sulfonamide Allergy Shortness Verified 09/19/19 12:39 Antibiotics) of Breath PMH/Surg Hx/FS Hx/Imm Hx Previously Healthy: Yes Cardiovascular History: Hypertension Respiratory History: Asthma - Surgical History Surgical History: Yes Surgery Procedure, Year, and Place: PARTIAL HYSTERECTOMY - both ovaries remain. APPENDIX CHILD. TUBAL LIGATION - Family History Known Family History: Positive: Other - duodenal CA mother Negative: Hypertension, Diabetes Family History: duodenal CA mother - Social History Alcohol Use: None Alcohol Amount: 1-2 x per month Substance Use Type: None Smoking Status (MU): Never Smoked Tobacco - Immunization History Most Recent Influenza Vaccination: 2014 Most Recent Tetanus Shot: unsure Review of Systems All Other Systems Reviewed And Are Negative: Yes Constitutional: Positive: Other - SEE HPI Skin: Positive: Negative Eyes: Positive: Negative ENT: Positive: Sore Throat Respiratory: Positive: Cough, Other - SEE HPI Cardiovascular: Positive: Negative Gastrointestinal: Positive: Negative Motor: Positive: Negative Neurovascular: Positive: Negative Musculoskeletal: Positive: Negative Neurological: Positive: Negative Psychological: Positive: Negative Is Patient Immunocompromised?: No Physical Exam Triage Information Reviewed: Yes Appearance: No Pain Distress, Well-Nourished, Ill-Appearing - MILD Vital Signs: Initial Vital Signs Temp 98.8 F 09/19/19 12:36 Pulse 100 09/19/19 12:36 Resp 20 09/19/19 12:36 BP 137/90 09/19/19 12:36 Pulse Ox 97 09/19/19 12:36 Vital Signs Reviewed: Yes Eye Exam: Normal Eyes: Positive: Conjunctiva Clear ENT: Positive: Pharyngeal erythema, Nasal congestion, Nasal drainage, TMs normal Neck: Positive: Supple Respiratory: Positive: No respiratory distress, Wheezing Cardiovascular: Positive: RRR Musculoskeletal: Positive: Strength Intact, ROM Intact Neurological: Positive: Alert, Muscle Tone Normal Psychological: Positive: Normal Response To Family, Age Appropriate Behavior Skin Exam: Normal Respiratory Course/Dx - Course Course Of Treatment: DISCUSSED VIRAL VERSES BACTERIAL INFECTIONS AND THE ROLE OF ANTIBIOTICS. THE PATIENT PREFERS TO BE ON ANTIBIOTICS AT THIS TIME. - Differential Dx/Diagnosis Provider Diagnosis: Bronchitis with bronchospasm Discharge ED - Sign-Out/Discharge Documenting (check all that apply): Patient Departure All imaging exams completed and their final reports reviewed: No Studies - Discharge Plan Condition: Stable Disposition: HOME Prescriptions: Benzonatate CAP* [Tessalon 100 MG CAP*] 100 mg PO TID PRN #20 cap PRN Reason: Cough DOXYcycline CAP(*) [DOXYcycline 100MG CAP(*)] 100 mg PO BID #20 cap Patient Education Materials: Acute Bronchitis (ED), Bronchospasm (ED) Forms: *Work Release Referrals: [facility] [Outside] Additional Instructions: FOLLOW UP WITH YOUR DOCTOR IF NOT COMPLETELY IMPROVED. GET REEVALUATED SOONER IF NOT IMPROVED OR WORSE OR ANY QUESTIONS OR CONCERNS. - Billing Disposition and Condition Condition: STABLE Disposition: Home
== END 2019-09-19 16:00 | disposition home or self-care (01) ==
LOC: UCEAST 12:06
DX: J20.9 Acute bronchitis, unspecified (principal); I10 Essential (primary) hypertension; J45.909 Unspecified asthma, uncomplicated; J02.9 Acute pharyngitis, unspecified; Z88.5 Allergy status to narcotic agent; Z88.2 Allergy status to sulfonamides
CPT/HCPCS: 99212; G0463